=== PATIENT | male | born 1935 | race Caucasian/White ===

== ENCOUNTER 2022-09-30 08:13 | Outpatient (RCR) | payer MEDICARE, SELFPAY | END 2022-09-30 16:00 | disposition home or self-care (01) | LOC: HO.WCC 08:13 | PROVIDERS: PCP Internal Medicine; Visit Provider Physician Assistant | DX: L97.311 Non-pressure chronic ulcer of right ankle limited to breakdown of skin (principal); I73.9 Peripheral vascular disease, unspecified | CPT/HCPCS: 99213 ==